=== PATIENT | female | born 1945 | race Caucasian/White ===

== ENCOUNTER 2016-06-16 08:24 | Day surgery (SDC) | payer MEDICARE, OTHER ==
[~2016-06-16 08:24] MED LIST: ARAVA20 MG PO; BONIVA150 MG PO; CALCIUM CITRAT1 EA21 PO; CENTRUM SILVER1 EAC3 PO; CENTRUM SILVER1 TA PO; CITRACAL + D CA1 TAB PO; COLACE100 M1 PO; CYCLOBENZAPRINE10 M1 PO; DAPTOMYCIN 400 MG IV; DARVOCET-N 1001 TAB; DARVOCET-N 1001 TAB PO; FLEXERIL10 MG PO; FORTEO2.4 ML; HYDROCODON-ACE1 EA17 PO; IRON; IRON PO; LIDEX TOP; LORAZEPAM0.5 M1 PO; LORAZEPAM0.5 MG PO; LORTAB 5-325 M1 EAC1 PO; LORTAB 5-500 T1 EAC1 PO; MICRO-K 1010 MEQ PO; MULTIGEN FOLIC1 EACH PO; NEXIUM40 M1 PO; NEXIUM40 MG PO; NIFEREX-150 FOR1 CA1 PO; PERCOCET 10 MG/1 TAB PO; PLAQUENIL200 M1 PO; PLAQUENIL200 MG PO; POTASSIUM CHLO10 ME2 PO; PREDNISONE10 M1 PO; SALSALATE750 MG; SENOKOT-S TABLE1 TAB PO; TALACEN CAPLET1 TAB PO; TYLENOL650 MG PO; VITAMIN C; Vitamin C PO; ZANTAC150 MG; ZOLOFT100 M1 PO; ZOLOFT100 MG PO; [UNRECOGNIZED DRUG - OTHER] PO
[2016-07-09] MEDS ORDERED: CUBICIN500 MG IV (10:45)
[2016-08-06] MEDS ORDERED: DELTASONE20 MG PO (09:51)
[2016-08-06] MEDS ORDERED: BACTRIM DS TAB1 EAC2 PO (09:52)
== END 2016-06-16 15:00 ==
LOC: SHSA 08:24 → ORE 10:28 → PACU 12:01 → SHSA 13:00
PROC: 0RPP0JZ Removal of Synthetic Substitute from Left Wrist Joint, Open Approach (ICD-10-PCS; principal; 2016-06-16)
PROC: 0LB60ZZ Excision of Left Lower Arm and Wrist Tendon, Open Approach (ICD-10-PCS; 2016-06-16)
DX: L02.414 Cutaneous abscess of left upper limb (principal); B95.62 Methicillin resistant Staphylococcus aureus infection as the cause of diseases classified elsewhere; M65.88 Other synovitis and tenosynovitis, other site; S66.812A Strain of other specified muscles, fascia and tendons at wrist and hand level, left hand, initial encounter; I73.9 Peripheral vascular disease, unspecified; M06.9 Rheumatoid arthritis, unspecified; F41.9 Anxiety disorder, unspecified; F32.9 Major depressive disorder, single episode, unspecified; K21.9 Gastro-esophageal reflux disease without esophagitis; I35.0 Nonrheumatic aortic (valve) stenosis; E78.5 Hyperlipidemia, unspecified; M19.90 Unspecified osteoarthritis, unspecified site; D64.9 Anemia, unspecified; Z79.899 Other long term (current) drug therapy; Z88.1 Allergy status to other antibiotic agents; Z88.5 Allergy status to narcotic agent; Z88.8 Allergy status to other drugs, medicaments and biological substances; Z87.11 Personal history of peptic ulcer disease; Z98.890 Other specified postprocedural states
CPT/HCPCS: C1713; J0690; J2250; J3370